=== PATIENT | male | born 1990 | race Caucasian/White ===

== ENCOUNTER 2020-02-12 12:45 | Emergency (ER) | payer OTHER ==
[~2020-02-12] VITALS: Ht 182.9 cm; Wt 97.5 kg
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
[2020-02-12 15:47] VITALS: BP 130/74
--- NOTE | 2020-02-12 15:48 | NUR ---
Patient discharged to home in stable condition. Written and verbal after care instructions given. Patient verbalizes understanding of instruction.
== END 2020-02-12 15:48 | disposition home or self-care (01) ==
LOC: ER 12:49
DX: S06.0X0A Concussion without loss of consciousness, initial encounter (principal); S80.01XA Contusion of right knee, initial encounter; R51 Headache; W22.8XXA Striking against or struck by other objects, initial encounter; Y93.89 Activity, other specified; Y92.89 Other specified places as the place of occurrence of the external cause; Y99.8 Other external cause status
CPT/HCPCS: 73564-TC